=== PATIENT | male | born 2000 | race Caucasian/White ===

== ENCOUNTER 2024-10-01 18:08 | Emergency (ER) | payer SELFPAY ==
[2024-10-01 19:19] VITALS: BP 135/90; PULSE 93; RESP 16; TEMP 37; O2SAT 97; BMI 35.1
--- NOTE | 2024-10-01 19:21 | ED_ITS ---
HPI - Nausea/Vomiting/Diarrhea General Chief complaint: Nausea/Vomiting/Diarrhea Stated complaint: went to DR came back still sick N/V Related Data Allergies Allergy/AdvReac Type Severity Reaction Status Date / Time No Known Allergies (No Known Allergy Verified 10/01/24 19:22 Allergies*) [facility] Social History Social History Advance Directives: No Advance Directives Information Provided: No Do you have a plan to hurt others: No Plan Physical Exam 2 Vital Signs: Vital Signs: Last Vital Signs Temp 98.6 F 10/01/24 19:19 Pulse 93 10/01/24 19:19 Resp 16 10/01/24 19:19 BP 135/90 H 10/01/24 19:19 Pulse Ox 97 10/01/24 19:19 O2 Del Method Room Air 10/01/24 19:19 BMI result Body Mass Index 35.1 Course Course Course Narrative: RME: Anais Hurst PA-C 10/01/2024:725 pm will defer full ROS and PE to treating provider 23 y/o M went to [facility] last Mon, 6 days ago. while there had n/v/d later that day. Came back yesterday. Had blood in stools first day, but never in vomit. Had only vomiting first 2 days but since resolved. Has 3-6 loose brown stools daily. Family who went same sxs but only lasted a day. He is tolerating PO fluids and voiding regularly. NO abd cramping. Feeling better today but wanted to get checked out. no polyuria or polydipsia. No headaches, muscle crampings, fevers, chills, sweats or wt loss. No rashes. Looks well on exam, dry mucous membranes, but soft nontender abdomen. Clear lungs. Likely traveler's diarrhea but improving, cannot rule out O or P. Nonacute nonsurgical abd. CT deferred. Attempted to get stool sample while here Plan: basic labs and stool studies, POC glucose checked (88) Labs reviewed while awaiting room: no leukocytosis, or severe anemia, no electrolyte imbalance, will continue to monitor for changes while awaiting room Shannan Mesa PA-C [id number] ----> Patient positive for 3 strains of E.coli. Called and informed patient. Medical Decision Making Lab Data 10/01/24 19:38 10/01/24 19:38 Labs: Lab Results 10/01/24 10/01/24 Range/Units 19:23 19:38 WBC 10.6 (4.8-10.8) X10*3/uL RBC 4.85 (4.60-5.80) X10*6/uL Hgb 14.5 (14.0-18.0) g/dl Hct 39.8 L (42.0-52.0) % MCV 82.1 (80.0-98.0) fL MCH 29.9 (27.0-33.0) pg MCHC 36.4 H (31.0-36.0) g/dl RDW 12.6 (11.0-16.0) % Plt Count 318 (160-400) X10*3/uL MPV 8.8 L (9.4-12.4) fL Immature Gran % (Auto) Cancelled Neut % (Auto) Cancelled Lymph % (Auto) Cancelled Grainger % (Auto) Cancelled Eos % (Auto) Cancelled Baso % (Auto) Cancelled Lymph # (Auto) Cancelled Grainger # (Auto) Cancelled Eos # (Auto) Cancelled Baso # (Auto) Cancelled Abs Immat Gran (auto) Cancelled Absolute Neuts (auto) Cancelled Absolute Nucleated RBC 0.000 (0.0-0.012) X10*3/uL Nucleated RBC % (auto) 0.0 (0.0-0.2) /100WBC Neutrophils % (Manual) 57 (45-73) % Band Neutrophils % 1 L (3-5) % Lymphocytes % (Manual) 26 (20-40) % Atypical Lymphs % (Man) 4 (0-6) % Monocytes % (Manual) 7 (2-11) % Eosinophils % (Manual) 3 (0-4) % Basophils % (Manual) 2 (0-2) % Abs Neuts (Manual) 6.1 (2.0-8.3) X10*3/uL Lymphocytes # (Manual) 2.8 (1.2-4.9) X10*3/uL Atyp Lymphs # (Manual) 0.4 x10*3/uL Monocytes # (Manual) 0.7 (0.1-1.2) X10*3/uL Eosinophils # (Manual) 0.3 (0.0-0.4) X10*3/uL Basophils # (Manual) 0.2 (0.0-0.2) X10*3/uL Platelet Estimate NORMAL (NORMAL) Plt Morphology Comment NORMAL RBC Morphology NORMAL Smear Tech's Comments MANUAL DIFF Sodium 140 (135-145) mmol/L Potassium 3.5 (3.3-5.1) mmol/L Chloride 103 (96-108) mmol/L Carbon Dioxide 26 (22-29) mmol/L Anion Gap 15 (12-20) BUN 10 (9-16) mg/dL Creatinine 0.79 (0.5-1.4) mg/dL Estim Creat Clear Calc 146.5 Estimated GFR > 60 POC Glucose 88 (60-115) mg/dL Fasting Glucose 91 (60-99) mg/dL Calcium 9.0 (8.4-10.2) mg/dL Total Bilirubin 0.6 (0.0-1.0) mg/dL AST 27 (5-37) U/L ALT 22 (0-40) U/L Alkaline Phosphatase 75 (39-117) U/L Total Protein 7.3 (6.5-8.0) g/dL Albumin 4.0 (3.5-5.0) g/dL Discharge Plan Discharge Clinical Impression: Gastroenteritis, Dehydration Patient Disposition: Left W/O Completing Treatment Discharge Date/Time: 10/02/24 00:35
[2024-10-01 19:28] LABS: Glucose, Whole Blood 88 mg/dL (60-115)
[2024-10-01 19:57] LABS: Alanine Aminotransferase 22 U/L (0-40); Alkaline Phosphatase 75 U/L (39-117); Anion Gap 15 (12-20); Aspartate Amino Transferase 27 U/L (5-37); Bilirubin Total 0.6 mg/dL (0.0-1.0); Blood Urea Nitrogen 10 mg/dL (9-16); Carbon Dioxide 26 mmol/L (22-29); Chloride 103 mmol/L (96-108); Creatinine Clr Calc Pharmacy 146.5; Estimated Glomerular Filt Rate > 60; Glucose Fasting 91 mg/dL (60-99); Potassium 3.5 mmol/L (3.3-5.1); Sodium 140 mmol/L (135-145); Total Protein 7.3 g/dL (6.5-8.0)
[2024-10-01 20:07] LABS: Hematocrit 39.8 % (42.0-52.0); Hemoglobin 14.5 g/dl (14.0-18.0); Mean Corpuscular HGB Conc 36.4 g/dl (31.0-36.0); Mean Corpuscular Hemoglobin 29.9 pg (27.0-33.0); Mean Corpuscular Volume 82.1 fL (80.0-98.0); Mean Platelet Volume 8.8 fL (9.4-12.4); Platelet Count 318 X10*3/uL (160-400); Red Blood Count 4.85 X10*6/uL (4.60-5.80); Red Cell Distribution Width 12.6 % (11.0-16.0); White Blood Count 10.6 X10*3/uL (4.8-10.8)
[2024-10-01 20:36] LABS: SLIDE REVIEW MANUAL DIFF
[2024-10-01 20:41] LABS: Atypical Lymph Absolute Manual 0.4 x10*3/uL; Atypical Lymphs Percent Manual 4 % (0-6); Band Neutrophils Percent 1 % (3-5); Basophils Abs Manual 0.2 X10*3/uL (0.0-0.2); Basophils Percent Manual 2 % (0-2); Eosinophils Absolute Manual 0.3 X10*3/uL (0.0-0.4); Eosinophils Percent Manual 3 % (0-4); Lymphocytes Absolute Manual 2.8 X10*3/uL (1.2-4.9); Lymphocytes Percent Manual 26 % (20-40); Monocytes Absolute Manual 0.7 X10*3/uL (0.1-1.2); Monocytes Percent Manual 7 % (2-11); Neutrophils Absolute Manual 6.1 X10*3/uL (2.0-8.3); Neutrophils Percent Manual 57 % (45-73)
[2024-10-01 20:43] LABS: Platelet Estimate NORMAL (NORMAL); Platelet Morphology Comment NORMAL; RBC Morphology NORMAL
--- OUTSIDE RECORDS SUMMARY | 2024-10-02 00:22 | XMS_ITS | Encounter Summary ---
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 Name Role Phone Perla Sterling MD Primary Care Provider Encounter Details Date Type Department Care Team (Late st Contact Info) Description 11/24/2016 Conversion Encounter [facility] [address] [place] [address] Social History Tobacco Use Types Packs/Day Years Used Date Smoking Tobacco: Never Assessed Sex and Gender Information Value Date Recorded Sex Assigned at Not on file Legal Sex Male 5:00 PM EDT Gender Identity Not on file Sexual Orientation Not on file documented as of this encounter Plan of Treatment Not on file documented as of this encounter Visit Diagnoses Not on filedocumented in this encounter Care Teams [employer] Relationship Specialty Start Date End Date Perla Sterling MD [address] [facility] [place] [address] PCP - General 11/18/16 11/01/23 documented as of this encounter
[2024-10-02 12:28] LABS: Adenovirus F 40/41 Not Detected (Not Detect.); Astrovirus Not Detected (Not Detect.); Campylobacter Not Detected (Not Detect.); Cryptosporidium Not Detected (Not Detect.); Cyclospora cayetanensis Not Detected (Not Detect.); E. coli EAEC Detected (Not Detect.); E. coli EPEC Not Detected (Not Detect.); E. coli ETEC Detected (Not Detect.); E. coli STEC Not Detected (Not Detect.); Entamoeba histolytica Not Detected (Not Detect.); Giardia lamblia Not Detected (Not Detect.); Norovirus GI/GII Not Detected (Not Detect.); Plesiomonas shigelloides Not Detected (Not Detect.); Rotavirus A Not Detected (Not Detect.); Salmonella Not Detected (Not Detect.); Sapovirus Not Detected (Not Detect.); Vibrio Not Detected (Not Detect.); Vibrio Cholerae Not Detected (Not Detect.); Yersinia enterocolitica Not Detected (Not Detect.)
[2024-10-02 13:00] LABS: Shigella sp./EIEC Detected (Not Detect.)
== END 2024-10-02 00:35 | disposition left against medical advice (07) ==
LOC: HO.ED 10-02 00:21
PROVIDERS: Physician Assistant Medical; Emergency Provider Emergency Medicine; PCP Pediatrics
DX: K52.9 Noninfective gastroenteritis and colitis, unspecified (principal); E86.0 Dehydration; R11.2 Nausea with vomiting, unspecified; Z79.899 Other long term (current) drug therapy
CPT/HCPCS: 36415; 80053; 82947; 85007; 85025; 85027; 87507; 99282; 99283